=== PATIENT | female | born 1960 | race Two or more races ===

== ENCOUNTER 2019-05-01 13:39 | Emergency (ER) | payer SELFPAY ==
[2019-05-01] MEDS ORDERED: KETOROLAC TROMETHAMINE INJ/PF 30 MG/1 ML SDV IV ONE (14:39)
[2019-05-01] MEDS ORDERED: NORMAL SALINE 1000 ML 1,000 ML IV ONE ×2 (14:39→19:16)
--- NOTE | 2019-05-01 14:41 | ER Document Report ---
ED Medical Screen (RME) - General Chief Complaint: Back Pain Stated Complaint: BACK PAIN Time Seen by Provider: 05/01/19 14:34 Primary Care Provider: MAGDALENA PARRA [Primary Care Provider] - Follow up as needed Mode of Arrival: Wheelchair Information source: Patient Notes: 58-year-old female patient Amharic-speaking presenting to the emergency department with back pain, abdominal pain, nausea, vomiting and fevers. Patient reports symptoms ongoing for approximately 5 days now. Denies any diarrhea. Reports occasional cough and congestion. Lung sounds clear and equal bilaterally. Patient alert, oriented, no acute distress noted. I have greeted and performed a rapid initial assessment of this patient. A comprehensive ED assessment and evaluation of the patient, analysis of test results and completion of the medical decision making process will be conducted by additional ED providers. I have specifically instructed the patient or family members with the patient to immediately return to any nursing staff should anything change in the patient's condition or with their chief complaint. TRAVEL OUTSIDE OF THE [place] IN LAST 30 DAYS: No - Related Data Allergies/Adverse Reactions: fluorescein Allergy (Verified 05/01/19 14:33) Past Medical History - Social History Frequency of alcohol use: None Drug Abuse: None Physical Exam - Vital signs Vitals: Temp Pulse Resp BP Pulse Ox 99.4 F 102 H 18 155/74 H 98 05/01/19 14:10 05/01/19 14:10 05/01/19 14:10 05/01/19 14:10 05/01/19 14:10 Course - Vital Signs Vital signs: Temp Pulse Resp BP Pulse Ox 99.4 F 102 H 18 155/74 H 98 05/01/19 14:10 05/01/19 14:10 05/01/19 14:10 05/01/19 14:10 05/01/19 14:10 Doctor's Discharge - Discharge Referrals: MAGDALENA PARRA [Primary Care Provider] - Follow up as needed
[2019-05-01] MEDS ORDERED: KETOROLAC TROMETHAMINE INJ/PF 30 MG/1 ML SDV ONE (18:10)
[2019-05-01 18:43] LABS: HEMATOCRIT 30.1 % (36.0-47.0); HEMOGLOBIN 10.3 g/dL (12.0-15.5); MEAN CORPUSCULAR HEMOGLOBIN 31.4 pg (27.0-33.4); MEAN CORPUSCULAR HGB CONC 34.1 g/dL (32.0-36.0); MEAN CORPUSCULAR VOLUME 92 fl (80-97); PLATELET COUNT 301 10^3/uL (150-450); RED BLOOD COUNT 3.27 10^6/uL (3.72-5.28); RED CELL DISTRIBUTION WIDTH 13.6 % (11.5-14.0); WHITE BLOOD COUNT 10.3 10^3/uL (4.0-10.5)
[2019-05-01] MEDS ORDERED: CETIRIZINE 10 MG TABLET PO ONE (18:51)
--- NOTE | 2019-05-01 18:52 | ER Document Report ---
ED General - General Chief Complaint: Back Pain Stated Complaint: BACK PAIN Time Seen by Provider: 05/01/19 14:34 Primary Care Provider: MAGDALENA PARRA [NO LOCAL MD] - Follow up as needed Mode of Arrival: Wheelchair Notes: Patient is a 58-year-old female who presents to the emergency department with a chief complaint of generalized body aches, back pain, abdominal pain, nausea, vomiting, no fever. Patient states that her symptoms started 5 days ago. Patient states that she has ear pain, cough, and congestion. She also has some rhinorrhea. Her cousin is at bedside and is translating for her. MERCEDES Crawford also at bedside to translate. TRAVEL OUTSIDE OF THE [place] IN LAST 30 DAYS: No - Related Data Allergies/Adverse Reactions: fluorescein Allergy (Verified 05/01/19 14:33) Past Medical History - General Information source: Patient - Social History Smoking Status: Never Smoker Frequency of alcohol use: None Drug Abuse: None Family History: Reviewed & Not Pertinent Patient has suicidal ideation: No Patient has homicidal ideation: No Endocrine Medical History: Reports: Hx Diabetes Mellitus Type 2 Review of Systems - Review of Systems Notes: REVIEW OF SYSTEMS: CONSTITUTIONAL : See HPI. EENT: Denies eye, ear, throat, or mouth pain, discharge, or symptoms. Denies nasal or sinus congestion. CARDIOVASCULAR: Denies chest pain. RESPIRATORY: Denies shortness of breath, cough, congestion, difficulty breathing, or wheezing. GASTROINTESTINAL: Denies nausea, vomiting, and diarrhea. Denies abdominal pain. Denies constipation. GENITOURINARY: Denies difficulty urinating, burning, blood in urine, urgency or frequency. MUSCULOSKELETAL: See HPI. Denies joint pain or swelling. SKIN: Denies rash, itchiness, or lesions HEMATOLOGIC : Denies easy bruising or bleeding. LYMPHATIC: Denies swollen, painful, enlarged glands. NEUROLOGICAL: Denies no numbness or tingling denies weakness. Denies headache. Denies altered mental status. Denies alteration in speech. PSYCHIATRIC: Denies stress, anxiety, alteration in sleep patterns, or depression. All other systems reviewed and negative. Physical Exam - Vital signs Vitals: Temp Pulse Resp BP Pulse Ox 99.4 F 102 H 18 155/74 H 98 05/01/19 14:10 05/01/19 14:10 05/01/19 14:10 05/01/19 14:10 05/01/19 14:10 - Notes Notes: PHYSICAL EXAMINATION: GENERAL: Appears ill, mild distress. HEAD: Normocephalic, atraumatic. EYES: PERRL, conjunctiva normal, all extraocular movements intact, sclera nonicteric ENT: Moist mucous membranes. NECK: Supple, no noticeable swelling, redness, rash. Normal range of motion. LUNGS: Equal breath sounds bilaterally and clear to auscultation. No wheezes rales or rhonchi. CARDIOVASCULAR: S1-S2, regular rate, regular rhythm. Radial pulses 2+, normal. ABDOMEN: Normoactive bowel sounds. Soft, nontender, no guarding, no rebound tenderness, and no masses palpated. EXTREMITIES: Normal strength and range of motion, no pitting or edema. No cyanosis. NEUROLOGICAL: Moves all extremities upon command. Strength 5/5 in all extremities. PSYCH: Normal mood, normal affect. SKIN: Warm, dry. No rash, lesions, ulcerations noted. Normal skin turgor. BACK: CVA tenderness Course - Re-evaluation Re-evalutation: 05/02/19 Presentation is most consistent with acute pyelonephritis. Laboratories do demonstrate a large amount of white blood cells in the urine as well as bacteria. Patient has had constitutional symptoms at home as well as a fever. CVA tenderness is present on exam. The remainder laboratories are relatively unremarkable without evidence of renal dysfunction. I do not suspect an acute appendicitis, biliary pathology, pancreatitis, intra-abdominal abscess, or tubo-ovarian abscess based on history and examination. Patient has been given a dose of IV ceftriaxone and a liter of fluids. Patient is able to tolerate oral intake without difficulty. Will be discharged home on 7 day course of cephalexin. A urine culture has been sent. Strict return precautions and follow-up recommendations have been discussed at length. - Vital Signs Vital signs: Temp Pulse Resp BP Pulse Ox 98.6 F 89 16 121/58 L 98 05/01/19 20:55 05/01/19 20:55 05/01/19 20:55 05/01/19 20:55 05/01/19 20:55 - Laboratory Result Diagrams: 05/01/19 18:23 05/01/19 18:23 Laboratory results interpreted by me: 05/01/19 05/01/19 05/01/19 17:26 18:23 18:23 RBC 3.27 L Hgb 10.3 L Hct 30.1 L Seg Neuts % (Manual) 93 H Lymphocytes % (Manual) 4 L Abs Neuts (Manual) 9.6 H Abs Lymphs (Manual) 0.4 L Sodium 129.3 L Potassium 5.8 H Chloride 95 L Glucose 302 H Total Bilirubin 2.3 H Direct Bilirubin 1.7 H AST 45 H ALT 43 H Alkaline Phosphatase 631 H Albumin 3.0 L Urine Protein 100 H Urine Glucose (UA) >=500 H Urine Ketones TRACE H Urine Blood SMALL H Leukocyte Esterase Rfl LARGE H Discharge - Discharge Clinical Impression: Back pain Qualifiers: Back pain location: low back pain Chronicity: acute Back pain laterality: bilateral Sciatica presence: without sciatica Qualified Code(s): M54.5 - Low back pain Urinary tract infection Qualifiers: Urinary tract infection type: acute pyelonephritis Qualified Code(s): N10 - Acute pyelonephritis Condition: Stable Disposition: HOME, SELF-CARE Instructions: Urinary Tract Infection ([facility]) Additional Instructions: Urinary Tract Infection Your evaluation indicates that you have a urinary tract infection. This is due to germs growing in the bladder. This is a common problem. This infection usually responds quickly to antibiotics. Your antibiotic should be taken exactly as prescribed. Drink plenty of fluids -- three to four quarts a day. Occasionally, a bladder anesthetic will be prescribed to help stop the fe eling of urgency until the antibiotic has a chance to clear the infection. This may cause your urine to be dark orange. Certain urine infections require a culture. If the doctor obtained a cult ure, the results will be back in two days. You should call to see if a change in treatment is needed. A repeat urinalysis after you finish treatment is often recommended. The physician will let you know if further testing is required. Call the doctor if you develop fever, chills, flank pain, inability to urinate, or blood in the urine. Prescriptions: Cephalexin [Keflex] 500 mg PO BID #14 capsule Referrals: LOCAL,NO [NO LOCAL MD] - Follow up as needed Print Language: Kyrgyz
[2019-05-01 18:57] LABS: ALKALINE PHOSPHATASE 631 U/L (38-126); ANION GAP 9 (5-19); ASPARTATE AMINO TRANSFERASE 45 U/L (14-36); BILIRUBIN,DIRECT 1.7 mg/dL (0.0-0.4); BILIRUBIN,TOTAL 2.3 mg/dL (0.2-1.3); BLOOD UREA NITROGEN 16 mg/dL (7-20); CALCIUM 8.6 mg/dL (8.4-10.2); CARBON DIOXIDE 25 mmol/L (22-30); CHLORIDE 95 mmol/L (98-107); GLUCOSE 302 mg/dL (75-110); POTASSIUM 5.8 mmol/L (3.6-5.0); TOTAL PROTEIN 7.4 g/dL (6.3-8.2)
[2019-05-01 19:08] LABS: ABSOLUTE LYMPHOCYTES# (MANUAL) 0.4 10^3/uL (0.5-4.7); ABSOLUTE MONOCYTES # (MANUAL) 0.3 10^3/uL (0.1-1.4); BASOPHILS % (MANUAL) 0 % (0-2); EOSINOPHILS % (MANUAL) 0 % (0-6); LYMPHOCYTES % (MANUAL) 4 % (13-45); MONOCYTES % (MANUAL) 3 % (3-13); SEGMENTED NEUTROPHILS % (MAN) 93 % (42-78); TOTAL CELLS COUNTED 100
[2019-05-01 19:09] LABS: PLATELET COMMENT ADEQUATE; POLYCHROMASIA SLIGHT
[2019-05-01 19:11] LABS: A TYPE INFLUENZA AG NEGATIVE (NEGATIVE); B INFLUENZA AG NEGATIVE (NEGATIVE)
[2019-05-01] MEDS ORDERED: ACETAMINOPHEN 325 MG TABLET PO ONE (19:16)
--- NOTE | 2019-05-01 19:16 | RADIOLOGY REPORT (SQ) ---
EXAM DESCRIPTION: CHEST SINGLE VIEW COMPLETED DATE/TIME: 05/01/2019 7:00 pm REASON FOR STUDY: body aches; fever; cough COMPARISON: None. EXAM PARAMETERS: NUMBER OF VIEWS: One view. TECHNIQUE: Single frontal radiographic view of the chest acquired. RADIATION DOSE: NA LIMITATIONS: None. FINDINGS: LUNGS AND PLEURA: No opacities, masses or pneumothorax. No pleural effusion. MEDIASTINUM AND HILAR STRUCTURES: No masses. Contour normal. HEART AND VASCULAR STRUCTURES: Heart normal in size. Normal vasculature. BONES: No acute findings. HARDWARE: None in the chest. OTHER: No other significant finding. IMPRESSION: NO ACUTE RADIOGRAPHIC FINDING IN THE CHEST. TECHNICAL DOCUMENTATION: JOB ID: [id number] 2010 [employer]- All Rights Reserved Reading location - IP/workstation name: [email or web address]
[2019-05-01 20:00] LABS: APPEARANCE,URINE CLOUDY; BILIRUBIN,URINE NEGATIVE (NEGATIVE); COLOR,URINE AMBER; GLUCOSE, URINE >=500 mg/dL (NEGATIVE); KETONES,URINE TRACE mg/dL (NEGATIVE); PROTEIN,URINE 100 mg/dL (NEGATIVE); URINE SPECIFIC GRAVITY 1.012; UROBILINOGEN,URINE NEGATIVE mg/dL (<2.0)
[2019-05-01] MEDS ORDERED: CEFTRIAXONE 1 GM/D5W RTU 50 ML IV ONE (20:21)
[2019-05-01] MEDS ORDERED: CEFTRIAXONE INJ 1000 MG VIAL IM ONE (20:26)
[2019-05-01] MEDS ORDERED: LIDOCAINE 1% INJ-PF (10 MG/ML) 30 ML SDV INJ ONE (20:26)
[2019-05-01 20:56] VITALS: BP 121/58
== END 2019-05-01 21:19 | disposition home or self-care (01) ==
LOC: ER 13:39
DX: N10 Acute pyelonephritis (principal); M54.5 Low back pain; R10.9 Unspecified abdominal pain; R11.2 Nausea with vomiting, unspecified; H92.09 Otalgia, unspecified ear; R05 Cough; J34.89 Other specified disorders of nose and nasal sinuses; E11.9 Type 2 diabetes mellitus without complications; Z88.8 Allergy status to other drugs, medicaments and biological substances
CPT/HCPCS: 99283; 96372; 96361; 96374; 36415; 87086; 83690; 85025; 87088; 80053; 81001; 87186; 87804; 71045; J3490; J1885; J0696; J7030

== ENCOUNTER 2019-05-27 07:42 | Emergency (ER) | payer SELFPAY ==
[2019-05-27 08:23] LABS: APPEARANCE,URINE CLOUDY; BILIRUBIN,URINE NEGATIVE (NEGATIVE); COLOR,URINE YELLOW; GLUCOSE, URINE >=500 mg/dL (NEGATIVE); KETONES,URINE NEGATIVE (NEGATIVE); LEUKOCYTE ESTERASE,URINE LARGE (NEGATIVE); NITRITE,URINE NEGATIVE (NEGATIVE); PROTEIN,URINE 100 mg/dL (NEGATIVE); URINE SPECIFIC GRAVITY 1.009
--- NOTE | 2019-05-27 08:50 | ER Document Report ---
ED GI/ - General Chief Complaint: Flank Pain Stated Complaint: URINARY PROBLEM/LOWER BACK PAIN Time Seen by Provider: 05/27/19 08:49 Primary Care Provider: ÁNGELA SCHAFER FNP-C [Primary Care Provider] - Follow up as needed Notes: Interpretation via Rodney [place] shirt turner with shirt turner #[id number]. Patient is a 58-year-old female who presents emergency department with a chief complaint of left flank pain. Patient was seen the end of March and was treated with Keflex for urinary tract infection. Patient states that her symptoms are a little bit better, but she still continues to have left flank pain. Patient states that she has some urgency and frequency. States that she only urinates a little. Admits to some constipation. Patient has been taking ibuprofen, but has had little relief of her pain. TRAVEL OUTSIDE OF THE [place] IN LAST 30 DAYS: No - Related Data Allergies/Adverse Reactions: fluorescein Allergy (Verified 05/27/19 07:55) Home Medications: DM medications Past Medical History - Social History Smoking Status: Former Smoker Chew tobacco use (# tins/day): No Frequency of alcohol use: None Drug Abuse: None Family History: Reviewed & Not Pertinent Patient has suicidal ideation: No Patient has homicidal ideation: No Endocrine Medical History: Reports: Hx Diabetes Mellitus Type 2 Review of Systems - Review of Systems Notes: REVIEW OF SYSTEMS: CONSTITUTIONAL : Denies recent illness. Denies recent unintentional weight loss. Denies fever, chills, or sweats. EENT: Denies eye, ear, throat, or mouth pain, discharge, or symptoms. Denies nasal or sinus congestion. CARDIOVASCULAR: Denies chest pain. RESPIRATORY: Denies shortness of breath, cough, congestion, difficulty breathing, or wheezing. GASTROINTESTINAL: Denies nausea, vomiting, and diarrhea. Denies abdominal pain. Denies constipation. GENITOURINARY: See HPI. MUSCULOSKELETAL: See HPI. Denies joint pain or swelling. SKIN: Denies rash, itchiness, or lesions HEMATOLOGIC : Denies easy bruising or bleeding. LYMPHATIC: Denies swollen, painful, enlarged glands. NEUROLOGICAL: Denies no numbness or tingling denies weakness. Denies headache. Denies altered mental status. Denies alteration in speech. PSYCHIATRIC: Denies stress, anxiety, alteration in sleep patterns, or depression. All other systems reviewed and negative. Physical Exam - Vital signs Vitals: Temp Pulse Resp BP Pulse Ox 98 F 83 16 167/74 H 100 05/27/19 07:49 05/27/19 07:49 05/27/19 07:49 05/27/19 07:49 05/27/19 07:49 - Notes Notes: PHYSICAL EXAMINATION: GENERAL: Appears well, healthy, well-nourished, no acute distress. HEAD: Normocephalic, atraumatic. EYES: PERRL, conjunctiva normal, all extraocular movements intact, sclera nonicteric ENT: Moist mucous membranes. NECK: Supple, no noticeable swelling, redness, rash. Normal range of motion. LUNGS: Equal breath sounds bilaterally and clear to auscultation. No wheezes rales or rhonchi. CARDIOVASCULAR: S1-S2, regular rate, regular rhythm. Radial pulses 2+, normal. ABDOMEN: Normoactive bowel sounds. Soft, nontender, no guarding, no rebound tenderness, and no masses palpated. EXTREMITIES: Normal strength and range of motion, no pitting or edema. No cyanosis. NEUROLOGICAL: Moves all extremities upon command. Strength 5/5 in all extremities. PSYCH: Normal mood, normal affect. SKIN: Warm, dry. No rash, lesions, ulcerations noted. Normal skin turgor. Back: Left CVA tenderness. Course - Re-evaluation Re-evalutation: 05/27/19 10:[address] Valdez, urology at [facility]. He is recommending the patient patient start on Flomax and follow-up with urology outpatient. He is also recommending patient be started on Bactrim. 05/27/19 11:20 Solar Maintenance TechnicianCharleen, ID number [id number]. Patient will follow-up with [facility] urology. She will be started on Flomax. I looked at her previous visit and her microbiology shows that the strain of E. coli that she has is resistant to Bactrim. I will continue Keflex. Patient was straight cathed and will be sent for urine culture. Follow-up precautions were given. Verbal discharge i nstructions were given to the patient. They verbalized understanding. They are stable for discharge. - Vital Signs Vital signs: Temp Pulse Resp BP Pulse Ox 98.7 F 83 16 171/86 H 100 05/27/19 10:27 05/27/19 07:49 05/27/19 07:49 05/27/19 10:00 05/27/19 07:49 - Laboratory Result Diagrams: 05/27/19 08:45 05/27/19 08:45 Laboratory results interpreted by me: 05/27/19 05/27/19 05/27/19 08:10 08:45 08:45 RBC 3.16 L Hgb 9.6 L Hct 28.4 L Lymph % (Auto) 12.6 L Sodium 134.1 L Potassium 5.1 H BUN 21 H Glucose 269 H Alkaline Phosphatase 399 H Albumin 3.4 L Urine Protein 100 H Urine Glucose (UA) >=500 H Urine Urobilinogen 2.0 H Ur Leukocyte Esterase LARGE H Discharge - Discharge Clinical Impression: Left flank pain, Kidney stone Condition: Stable Disposition: HOME, SELF-CARE Additional Instructions: You are seen today in the emergency department for left flank pain. You have a kidney stone noted on your CT scan. Please take your antibiotic, follow-up with urology, and take the Flomax ordered for you. Prescriptions: Tamsulosin HCl [Flomax 0.4 mg Cap.sr] 0.4 mg PO DAILY #6 cap.sr.24h Cephalexin [Keflex] 500 mg PO BID #14 capsule Ondansetron [Zofran Odt 4 mg Tablet] 1 - 2 tab PO Q4H PRN #15 tab.rapdis PRN Reason: For Nausea/Vomiting Referrals: ÁNGELA SCHAFER FNP-C [Primary Care Provider] - Follow up as needed [facility] [Provider Group] - Follow up in 3-5 days
[2019-05-27] MEDS ORDERED: NORMAL SALINE 1000 ML 1,000 ML IV ONE (08:53)
[2019-05-27 09:00] LABS: ABSOLUTE EOSINOPHILS # (AUTO) 0.1 10^3/uL (0.0-0.6); ABSOLUTE LYMPHOCYTES (AUTO) 0.9 10^3/uL (0.5-4.7); ABSOLUTE MONOCYTES (AUTO) 0.6 10^3/uL (0.1-1.4); ABSOLUTE NEUT (AUTO) 5.5 10^3/uL (1.7-8.2); BASOPHILS % (AUTO) 0.4 % (0-2); EOSINOPHILS % (AUTO) 1.7 % (0-6); HEMATOCRIT 28.4 % (36.0-47.0); HEMOGLOBIN 9.6 g/dL (12.0-15.5); LYMPHOCYTES % (AUTO) 12.6 % (13-45); MEAN CORPUSCULAR HEMOGLOBIN 30.4 pg (27.0-33.4); MEAN CORPUSCULAR HGB CONC 33.8 g/dL (32.0-36.0); MEAN CORPUSCULAR VOLUME 90 fl (80-97); MONOCYTES % (AUTO) 8.4 % (3-13); PLATELET COUNT 362 10^3/uL (150-450); RED BLOOD COUNT 3.16 10^6/uL (3.72-5.28); RED CELL DISTRIBUTION WIDTH 13.6 % (11.5-14.0); SEGMENTED NEUTROPHILS % (AUTO) 76.9 % (42-78); TOTAL CELLS COUNTED % (AUTO) 100 %; WHITE BLOOD COUNT 7.1 10^3/uL (4.0-10.5)
[2019-05-27 09:18] LABS: ALBUMIN 3.4 g/dL (3.5-5.0); ALKALINE PHOSPHATASE 399 U/L (38-126); ANION GAP 7 (5-19); ASPARTATE AMINO TRANSFERASE 22 U/L (14-36); BILIRUBIN,DIRECT 0.2 mg/dL (0.0-0.4); BILIRUBIN,TOTAL 0.5 mg/dL (0.2-1.3); BLOOD UREA NITROGEN 21 mg/dL (7-20); CALCIUM 8.9 mg/dL (8.4-10.2); CARBON DIOXIDE 28 mmol/L (22-30); CHLORIDE 99 mmol/L (98-107); GLUCOSE 269 mg/dL (75-110); POTASSIUM 5.1 mmol/L (3.6-5.0); TOTAL PROTEIN 7.9 g/dL (6.3-8.2)
--- NOTE | 2019-05-27 09:51 | RADIOLOGY REPORT (SQ) ---
EXAM DESCRIPTION: CT ABD/PELVIS NO ORAL OR IV COMPLETED DATE/TIME: 05/27/2019 9:38 am REASON FOR STUDY: left flank pain COMPARISON: 02/22/2008 TECHNIQUE: CT scan of the abdomen and pelvis performed without intravenous or oral contrast. Images reviewed with lung, soft tissue, and bone windows. Reconstructed coronal and sagittal MPR images revi ewed. All images stored on PACS. All CT scanners at this facility use dose modulation, iterative reconstruction, and/or weight based d osing when appropriate to reduce radiation dose to as low as reasonably achievable (ALARA). [facility]: Dose Right [facility]: CareDose [facility]: Dose Right [facility]: Teradose 4D [facility]: LurnQ RADIATION DOSE: CT Rad equipment meets quality standard of care and radiation dose reduction techniq ues were employed. CTDIvol: 4.8 mGy. DLP: 247 mGy-cm.mGy. LIMITATIONS: None. FINDINGS: LOWER CHEST: No significant findings. No nodules or infiltrates. NON-CONTRASTED LIVER, SPLEEN, ADRENALS: Evaluation limited by lack of IV contrast. No identified sign ificant masses. PANCREAS: No masses. No peripancreatic inflammatory changes. GALLBLADDER: No identified stones by CT criteria. No inflammatory changes to suggest cholecystitis. RIGHT KIDNEY AND URETER: No suspicious masses. Assessment limited by lack of IV contrast. No signif icant calcifications. No hydronephrosis or hydroureter. LEFT KIDNEY AND URETER: No suspicious masses. Assessment limited by lack of IV contrast. There is blurring of the central fat. No significant perinephric stranding. No hydronephrosis. There is no ureteral dilatation. There is a small calcification identified on series 3, image 73 an on coronal reconstructions image 39. Distal left ureteral stone cannot be excluded. AORTA AND RETROPERITONEUM: No aneurysm. Occasional small periaortic lymph node is identified. This is significantly improved from 2008. BOWEL AND PERITONEAL CAVITY: No obvious masses or inflammatory changes. No free fluid. APPENDIX: Normal. PELVIS, BLADDER, AND ABDOMINAL WALL:Fibroid uterus is noted. BONES: No significant findings. OTHER: No other significant finding. IMPRESSION: 1. Occasional small periaortic lymph node. These are nonspecific. 2. Blurring of the central fat planes involving the left kidney. Possible 1 to 2 mm distal left ure teral stone. No significant hydronephrosis. COMMENT: Quality ID # [id number]: Final reports with documentation of one or more dose reduction techniques (e.g., Automated exposure control, adjustment of the mA and/or kV according to patient size, use of iterative reconstruction technique) TECHNICAL DOCUMENTATION: JOB ID: [id number] 2010 [employer]- All Rights Reserved Reading location - IP/workstation name: [email or web address]-
[2019-05-27] MEDS ORDERED: CIPROFLOXACIN 400 MG/D5W RTU 400 MG/200 ML RTUPB IV SCH (10:00)
[2019-05-27] MEDS ORDERED: METOCLOPRAMIDE HCL INJ/PF 10 MG/2 ML SDV IV ONE (10:20)
[2019-05-27] MEDS ORDERED: TAMSULOSIN HCL 0.4 MG CAP.SR.24H PO ONE (10:48)
[2019-05-27] MEDS ORDERED: ONDANSETRON ODT 4 MG TAB (6 TAB/ER DISP) PO PRN (11:28)
[2019-05-27 11:39] VITALS: BP 166/82
== END 2019-05-27 11:40 | disposition home or self-care (01) ==
LOC: ER 07:42
DX: N20.0 Calculus of kidney (principal); R10.9 Unspecified abdominal pain; R39.198 Other difficulties with micturition; M54.5 Low back pain; R39.15 Urgency of urination; R35.0 Frequency of micturition; Z87.891 Personal history of nicotine dependence; E11.9 Type 2 diabetes mellitus without complications
CPT/HCPCS: 99284; 96375; 96365; 36415; 87086; 85025; 80053; 81001; 74176; J2765; J7030; J0744

== ENCOUNTER 2019-08-30 20:33 | Emergency (ER) | payer SELFPAY ==
[2019-08-30] MEDS ORDERED: KETOROLAC TROMETHAMINE INJ/PF 30 MG/1 ML SDV IV ONE (21:23)
[2019-08-30] MEDS ORDERED: ONDANSETRON HCL INJ/PF 4 MG/2 ML SDV IV ONE (21:23)
--- NOTE | 2019-08-30 21:27 | ER Document Report ---
ED Medical Screen (RME) - General Chief Complaint: Possible Kidney Stone Stated Complaint: FLANK PAIN Time Seen by Provider: 08/30/19 21:10 Primary Care Provider: ÁNGELA SCHAFER FNP-C [Primary Care Provider] - Follow up as needed Mode of Arrival: Ambulatory Information source: Patient Notes: Patient with c/o Left flank pain that started this am. She has been vomiting today. She denies any fever or chills but reports some dysuria. Pt also c/o dry eyes. She has a hx of kidney stones. She is luxembourgish speaking and translation system was used. Abd soft/nontender. I have greeted and performed a rapid initial assessment of this patient. A comprehensive ED assessment and evaluation of the patient, analysis of test results and completion of the medical decision making process will be conducted by additional ED providers. I have specifically instructed the patient or family members with the patient to immediately return to any nursing staff should anything change in the patient's condition or with their chief complaint. TRAVEL OUTSIDE OF THE [place] IN LAST 30 DAYS: No - Related Data Allergies/Adverse Reactions: fluorescein Allergy (Verified 05/27/19 07:55) Home Medications: diabetes medicine Past Medical History - Social History Chew tobacco use (# tins/day): No Frequency of alcohol use: None Drug Abuse: None Endocrine Medical History: Reports: Hx Diabetes Mellitus Type 2 Physical Exam - Vital signs Vitals: Temp Pulse Resp BP Pulse Ox 99.5 F 96 16 98/72 L 98 08/30/19 20:40 08/30/19 20:40 08/30/19 20:40 08/30/19 20:40 08/30/19 20:40 Course - Vital Signs Vital signs: Temp Pulse Resp BP Pulse Ox 99.5 F 96 16 98/72 L 98 08/30/19 21:16 08/30/19 20:40 08/30/19 20:40 08/30/19 20:40 08/30/19 20:40 Doctor's Discharge - Discharge Referrals: ÁNGELA SCHAFER FNP-C [Primary Care Provider] - Follow up as needed
[2019-08-30 22:00] LABS: ABSOLUTE LYMPHOCYTES (AUTO) 0.8 10^3/uL (0.5-4.7); ABSOLUTE MONOCYTES (AUTO) 0.8 10^3/uL (0.1-1.4); ABSOLUTE NEUT (AUTO) 12.7 10^3/uL (1.7-8.2); BASOPHILS % (AUTO) 0.1 % (0-2); EOSINOPHILS % (AUTO) 0.2 % (0-6); HEMATOCRIT 30.4 % (36.0-47.0); HEMOGLOBIN 10.3 g/dL (12.0-15.5); LYMPHOCYTES % (AUTO) 5.8 % (13-45); MEAN CORPUSCULAR HEMOGLOBIN 30.2 pg (27.0-33.4); MEAN CORPUSCULAR HGB CONC 33.9 g/dL (32.0-36.0); MEAN CORPUSCULAR VOLUME 89 fl (80-97); MONOCYTES % (AUTO) 5.8 % (3-13); PLATELET COUNT 256 10^3/uL (150-450); RED BLOOD COUNT 3.41 10^6/uL (3.72-5.28); SEGMENTED NEUTROPHILS % (AUTO) 88.1 % (42-78); TOTAL CELLS COUNTED % (AUTO) 100 %; WHITE BLOOD COUNT 14.4 10^3/uL (4.0-10.5)
[2019-08-30 22:09] LABS: ALBUMIN 4.1 g/dL (3.5-5.0); ALKALINE PHOSPHATASE 265 U/L (38-126); ANION GAP 9 (5-19); ASPARTATE AMINO TRANSFERASE 29 U/L (14-36); BILIRUBIN,TOTAL 0.7 mg/dL (0.2-1.3); BLOOD UREA NITROGEN 27 mg/dL (7-20); CALCIUM 9.7 mg/dL (8.4-10.2); CARBON DIOXIDE 26 mmol/L (22-30); CHLORIDE 94 mmol/L (98-107); POTASSIUM 5.3 mmol/L (3.6-5.0); TOTAL PROTEIN 8.3 g/dL (6.3-8.2)
[2019-08-30 22:20] LABS: GLUCOSE 458 mg/dL (75-110)
--- NOTE | 2019-08-30 22:55 | RADIOLOGY REPORT (SQ) ---
EXAM DESCRIPTION: Retroperitoneal ultrasound CLINICAL HISTORY: 58 years Female; L flank pain TECHNIQUE: Bilateral renal ultrasound was performed. COMPARISON: CT scan of the abdomen and pelvis without contrast 05/27/2019 FINDINGS: Visualized portions of IVC and aorta are unremarkable. Right kidney: The kidney measures 9.1 x 4.6 x 4.4 cm. Echogenicity is normal. Blood flow is normal.. No hydronephrosis or shadowing calculi. Left kidney: The kidney measures 9.8 x 4.7 x 4.9 cm and there is mild pelvocaliectasis. The ureter is dilated.. No definite stones. Bladder: The bladder is mostly empty with a volume of 24.7 mL. Bilateral ureteral jets are seen. IMPRESSION: Mild left-sided hydronephrosis and hydroureter of uncertain etiology. No stones are seen.
[2019-08-31] MEDS ORDERED: ONDANSETRON HCL INJ/PF 4 MG/2 ML SDV IV ONE (00:30)
[2019-08-31] MEDS ORDERED: KETOROLAC TROMETHAMINE INJ/PF 30 MG/1 ML SDV IV ONE (00:30)
[2019-08-31] MEDS ORDERED: HYDROMORPHONE HCL INJ/PF 2 MG/ML AMPULE IV ONE (01:28)
[2019-08-31] MEDS ORDERED: NORMAL SALINE 1000 ML 1,000 ML IV ONE (01:28)
--- NOTE | 2019-08-31 02:38 | RADIOLOGY REPORT (SQ) ---
EXAM: CT Abdomen and Pelvis Without Intravenous Contrast EXAM DATE/TIME: 08/31/2019 2:10 AM CLINICAL HISTORY: The patient is 58 years old and is Female; left flank pain TECHNIQUE: Axial computed tomography images of the abdomen and pelvis without intravenous contrast. Sagittal and coronal reformatted images were created and reviewed. This CT exam was performed using one or more of the following dose reduction techniques: automated exposure control, adjustment of the mA and/or kV according to patient size, and/or use of iterative reconstruction technique. COMPARISON: CT abdomen pelvis from 05/27/2019; retroperitoneal ultrasound from 08/30/2019 FINDINGS: LUNG BASES: Unremarkable. No mass. No consolidation. ABDOMEN: LIVER: There is a faint hypodense lesion in the dome of the liver measuring 9 mm (series 3, image 7). This may represent a cyst but is difficult to fully characterize on this exam. The liver is otherwise unremarkable. GALLBLADDER AND BILE DUCTS: Unremarkable. No calcified stones. No significant biliary ductal dilatation. PANCREAS: Unremarkable. No ductal dilation. SPLEEN: Unremarkable. No splenomegaly. ADRENALS: Unremarkable. No adrenal nodules or masses identified. KIDNEYS AND URETERS: The right kidney is normal in appearance. There is left-sided perinephric stranding which appears slightly increased compared to the prior CT. There is also asymmetric decreased visualization of the renal sinus fat on the left, which is similar to the prior exam. Suspected mild left-sided hydronephrosis. No renal or ureteral stones. No hydroureter. STOMACH AND BOWEL: No evidence of bowel obstruction. No significant bowel wall thickening appreciated. PELVIS: APPENDIX: No findings to suggest acute appendicitis. BLADDER: Unremarkable. No stones. REPRODUCTIVE: Calcified uterine fibroids again demonstrated. ABDOMEN and PELVIS: INTRAPERITONEAL SPACE: Unremarkable. No free air. No significant fluid collection. BONES/JOINTS: No acute fracture. No dislocation. SOFT TISSUES: No significant abnormalities in the superficial soft tissues. VASCULATURE: Unremarkable. No abdominal aortic aneurysm. LYMPH NODES: No significant lymph node enlargement. IMPRESSION: Slight interval increase in left-sided perinephric stranding, with mild left-sided hydronephrosis. No renal or ureteral stones. No hydroureter. Findings may represent pyelonephritis. Malignancy is difficult to completely exclude on this exam. If not contraindicated, contrasted multiphase renal protocol CT with delayed images would be helpful for further evaluation. Alternatively, consider urologic follow-up.
[2019-08-31 02:50] LABS: APPEARANCE,URINE CLOUDY; BILIRUBIN,URINE NEGATIVE (NEGATIVE); COLOR,URINE YELLOW; GLUCOSE, URINE >=500 mg/dL (NEGATIVE); KETONES,URINE NEGATIVE (NEGATIVE); LEUKOCYTE ESTERASE,URINE LARGE (NEGATIVE); NITRITE,URINE NEGATIVE (NEGATIVE); PROTEIN,URINE 100 mg/dL (NEGATIVE); UROBILINOGEN,URINE NEGATIVE mg/dL (<2.0)
[2019-08-31] MEDS ORDERED: CEFTRIAXONE INJ 1000 MG VIAL IV ONE (02:51)
--- NOTE | 2019-08-31 05:30 | ER Document Report ---
Entered by NANDO ARECHIGA SCRIBE 08/31/19 0149 Acting as scribe for:ZAC WILHELM IV, MD ED GI/ - General Chief Complaint: Possible Kidney Stone Stated Complaint: FLANK PAIN Time Seen by Provider: 08/30/19 21:10 Primary Care Provider: ÁNGELA SCHAFER FNP-C [Primary Care Provider] - Follow up as needed Mode of Arrival: Ambulatory Information source: Patient Notes: This 58 year old female patient with history of kidney stones and Hodgkin's lymphoma presents to the ED today with complaints of left-sided flank pain for the past x3 months, worse yesterday. Patient is a Citizen [place]-speaker, so HPI was interpreted using [employer]. Patient reports associated dysuria, urinary frequency, nausea, and vomiting. Denies fever or chills. Patient states that she gets evaluated every year in [place] for the cancer. TRAVEL OUTSIDE OF THE [place] IN LAST 30 DAYS: No - Related Data Allergies/Adverse Reactions: fluorescein Allergy (Verified 05/27/19 07:55) Home Medications: diabetes medicine Past Medical History - General Information source: Patient, [facility] Records - Social History Smoking Status: Current Some Day Smoker Cigarette use (# per day): Yes Chew tobacco use (# tins/day): No Smoking Education Provided: No Frequency of alcohol use: None Drug Abuse: None Family History: Reviewed & Not Pertinent Patient has suicidal ideation: No Patient has homicidal ideation: No Endocrine Medical History: Reports: Hx Diabetes Mellitus Type 2 Renal/ Medical History: Reports: Hx Kidney Stones Review of Systems - Review of Systems Constitutional: See HPI. denies: Chills, Fever EENT: No symptoms reported Cardiovascular: No symptoms reported Respiratory: No symptoms reported Gastrointestinal: See HPI, Nausea, Vomiting Genitourinary: See HPI, Dysuria, Frequency, Flank pain Female Genitourinary: No symptoms reported Musculoskeletal: No symptoms reported Skin: No symptoms reported Hematologic/Lymphatic: No symptoms reported Neurological/Psychological: No symptoms reported -: Yes All other systems reviewed and negative Physical Exam - Vital signs Vitals: Temp Pulse Resp BP Pulse Ox 99.5 F 96 16 98/72 L 98 08/30/19 20:40 08/30/19 20:40 08/30/19 20:40 08/30/19 20:40 08/30/19 20:40 - General General appearance: Alert, Other - Non-toxic appearing In distress: None - HEENT Head: Normocephalic, Atraumatic Eyes: Normal Pupils: PERRL - Respiratory Respiratory status: No respiratory distress Chest status: Nontender Breath sounds: Normal Chest palpation: Normal - Cardiovascular Rhythm: Regular Heart sounds: Normal auscultation Murmur: No Friction rub: No Gallop: None auscultated - Abdominal Inspection: Normal Distension: No distension Bowel sounds: Normal Tenderness: Nontender - Abdomen soft Organomegaly: No organomegaly - Back Back: Normal, Nontender - Extremities General upper extremity: Normal inspection General lower extremity: Normal inspection - Neurological Neuro grossly intact: Yes Orientation: AAOx4 - Psychological Associated symptoms: Normal affect, Normal mood - Skin Skin Temperature: Warm Skin Moisture: Dry Skin Color: Normal Course - Re-evaluation Re-evalutation: 08/31/19 04:23 Results of ED MSE discussed with patient using video blade aligner Mariana. Patient requested that this MD contact the patient's cousin Jessy and tell him the findings including the persistent enlarged kidney on CAT scan. Patient has a history of Hodgkin's lymphoma and this MD stressed to the patient and to the patient's cousin the importance of follow-up to make sure that the enlarged kidney is not cancerous. All questions were answered prior to discharge. Emergency signs and symptoms, reasons to return to the emergency department discussed with patient. 08/31/19 04:29 This MD spoke to the patient's cousin Jessy by phone and informed him of the findings of UTI and persistently enlarged left kidney and the need for follow-up to evaluate for the possibility of kidney cancer. - Vital Signs Vital signs: Temp Pulse Resp BP Pulse Ox 99.5 F 91 20 148/70 H 97 08/30/19 21:16 08/31/19 00:15 08/31/19 02:17 08/31/19 02:17 08/31/19 02:17 - Laboratory Result Diagrams: 08/30/19 21:28 08/30/19 21:28 Laboratory results interpreted by me: 08/30/19 08/30/19 08/31/19 21:28 21:28 01:55 WBC 14.4 H RBC 3.41 L Hgb 10.3 L Hct 30.4 L RDW 15.0 H Lymph % (Auto) 5.8 L Absolute Neuts (auto) 12.7 H Seg Neutrophils % 88.1 H Sodium 129.2 L Potassium 5.3 H Chloride 94 L BUN 27 H Creatinine 1.29 H Est GFR ( Amer) 52 L Est GFR (MDRD) Non-Af 43 L Glucose 458 H* Alkaline Phosphatase 265 H Total Protein 8.3 H Urine Protein 100 H Urine Glucose (UA) >=500 H Urine Blood SMALL H Ur Leukocyte Esterase LARGE H - Diagnostic Test Radiology reviewed: Reports reviewed Discharge - Discharge Clinical Impression: Hydronephrosis of left kidney UTI (urinary tract infection) Qualifiers: Urinary tract infection type: site unspecified Hematuria presence: with hematuria Qualified Code(s): N39.0 - Urinary tract infection, site not specified; R31.9 - Hematuria, unspecified Condition: Good Disposition: HOME, SELF-CARE Instructions: Trimethoprim-Sulfa ([facility]), Urinary Tract Infection ([facility]) Additional Instructions: Return to the Emergency Department without delay if any worse. HOME CARE INSTRUCTIONS & INFORMATION: Thank you for choosing us for your medical needs. We hope you're satisfied with the care you received. After you leave, you must properly care for your problem and, at the same time, observe its progress. Any condition can change. Some illnesses can change rapidly over hours or days. If your condition worsens, return to the Emergency Department or see your physician promptly. ABOUT YOUR X-RAYS AND EKG'S: If you had an EKG or X-rays taken, they have been read by the Emergency Physician. The X-rays and EKG's will also be read by a Radiologist or [employer] within 24 hours. If discrepancies are noted, you will be notified by telephone. Please be certain the ED has a correct telephone number & address where you can be reached. Also, realize that some fractures or abnormalities do not show up on initial X-rays. If your symptoms continue, see your physician. ABOUT YOUR LABORATORY TEST: If you had laboratory tests, the results have been reviewed by the Emergency Physician. Some test results (for example cultures) may not be available for several days. You will be contacted if any test result shows you need additional treatment. Please be certain the ED has a correct telephone number and address where you can be reached. ABOUT YOUR MEDICATIONS: You will receive instructions on how to take your medicine on the prescription label you receive. Additional information may be provided by the Pharmacy. If you have questions afterwards, call the ED for clarification or further instructions. Some prescribed medications may cause drowsiness. Do not perform tasks such as driving a car or operating machinery without consulting your Pharmacist. If you feel you need a refill of pain medication, your condition will need re-evaluation. Please do not call for a refill of any medication. ABOUT YOUR SIGNATURE: Signature of this document acknowledges to followin. Understanding that you received emergency treatment and that you may be released before al medical problems are known or treated. Please be certain the ED has a correct phone number & address where you can be reached. 2. Acknowledgement that you will arrange for follow-up care as recommended. 3. Authorization for the Emergency Physician to provide information to your follow-up Physician in order to maximize your care. AT ANY TIME, IF YOUR SYMPTOMS CHANGE SIGNIFICANTLY OR WORSEN OR YOU DEVELOP NEW SYMPTOMS, RETURN TO THE EMERGENCY DEPARTMENT IMMEDIATELY FOR RE-EVALUATION. OUR GOAL IS TO PROVIDE EXCELLENT MEDICAL CARE! WE HOPE THAT WE HAVE MET YOUR EXPECTATIONS DURING YOUR EMERGENCY DEPARTMENT VISIT AND THAT YOU FEEL YOU HAVE RECEIVED EXCELLENT CARE! Prescriptions: Sulfamethoxazole/Trimethoprim [Bactrim Ds Tablet] 1 tab PO BID 14 Days #28 tablet Referrals: ÁNGELA SCHAFER FNP-C [Primary Care Provider] - Follow up as needed Print Language: Citizen [place] I personally performed the services described in the documentation, reviewed and edited the documentation which was dictated to the scribe in my presence, and it accurately records my words and actions.
[2019-08-31 06:09] VITALS: BP 110/60
== END 2019-08-31 06:26 | disposition home or self-care (01) ==
LOC: ER 20:33
DX: N13.30 Unspecified hydronephrosis (principal); N39.0 Urinary tract infection, site not specified; R11.2 Nausea with vomiting, unspecified; R10.9 Unspecified abdominal pain; F17.210 Nicotine dependence, cigarettes, uncomplicated; Z87.442 Personal history of urinary calculi; Z85.71 Personal history of Hodgkin lymphoma
CPT/HCPCS: 99284; 96361; 96375; 96365; 36415; 83690; 85025; 80053; 81001; 76775; 74176; J1170; J0696; J2405; J7030

== ENCOUNTER 2019-09-03 17:38 | Emergency (ER) | payer SELFPAY ==
[2019-09-03] MEDS ORDERED: RINGERS SOLUTION,LACTATED 1,000 ML IV ONE (19:37)
[2019-09-03] MEDS ORDERED: ONDANSETRON HCL INJ/PF 4 MG/2 ML SDV IV ONE (19:37)
--- NOTE | 2019-09-03 19:37 | ER Document Report ---
ED GI/ - General Chief Complaint: Flank Pain Stated Complaint: ABDOMINAL PAIN Time Seen by Provider: 09/03/19 19:18 Primary Care Provider: ÁNGELA SCHAFER FNP-C [Primary Care Provider] - Follow up as needed Mode of Arrival: Ambulatory Information source: Patient, [facility] Records Notes: 58-year-old [place]er-speaking female with a past medical history significant for diabetes, non-Hodgkin's lymphoma presents to the emergency room with persistent lower abdominal pain, decreased urination, subjective fever, nausea and vomiting for the past 3 days. Patient states she was seen here on Monday was diagnosed with a UTI and hydronephrosis was discharged home on Bactrim which she states she has been unable to take secondary to the nausea and vomiting. States has b een unable to follow-up with her primary care physician as they are not taking patients due to the COVID-19 pandemic no recent travel. No COVID-19 exposure. No other ill contacts. Screen physical was obtained with the use of interpreter on [employer]. TRAVEL OUTSIDE OF THE [place] IN LAST 30 DAYS: No - Related Data Allergies/Adverse Reactions: fluorescein Allergy (Verified 09/03/19 18:48) Past Medical History - General Information source: Patient - Social History Smoking Status: Current Some Day Smoker Frequency of alcohol use: None Drug Abuse: None Family History: Reviewed & Not Pertinent Patient has homicidal ideation: No Endocrine Medical History: Reports: Hx Diabetes Mellitus Type 2 Renal/ Medical History: Reports: Hx Kidney Stones Review of Systems - Review of Systems Constitutional: Fever EENT: No symptoms reported Cardiovascular: No symptoms reported Respiratory: No symptoms reported Gastrointestinal: Abdominal pain, Nausea, Vomiting Genitourinary: Dysuria, Retention Musculoskeletal: No symptoms reported Hematologic/Lymphatic: No symptoms reported Neurological/Psychological: No symptoms reported -: Yes All other systems reviewed and negative Physical Exam - Vital signs Vitals: Temp Pulse Resp BP Pulse Ox 98.0 F 84 16 145/72 H 100 09/03/19 18:49 09/03/19 18:49 09/03/19 18:49 09/03/19 18:49 09/03/19 18:49 - General General appearance: Appears well, Alert In distress: Mild - HEENT Head: Normocephalic, Atraumatic Eyes: Normal Pupils: PERRL - Respiratory Respiratory status: No respiratory distress Chest status: Nontender Breath sounds: Normal Chest palpation: Normal - Cardiovascular Rhythm: Regular Heart sounds: Normal auscultation Murmur: No - Abdominal Inspection: Normal Distension: No distension Bowel sounds: Normal Tenderness: Tender - Diffuse generalized tenderness on palpation Organomegaly: No organomegaly. No: Hepatomegaly, Splenomegaly - Back Back: CVA tenderness - Left-sided - Neurological Neuro grossly intact: Yes Cognition: Normal Orientation: AAOx4 Judith Coma Scale Eye Opening: Spontaneous [place] Coma Scale Verbal: Oriented [place] Coma Scale Motor: Obeys Commands [place] Coma Scale Total: 15 Speech: Normal Motor strength normal: LUE, RUE, LLE, RLE Sensory: Normal - Skin Skin Temperature: Warm Skin Moisture: Dry Skin Color: Normal Course - Re-evaluation Re-evalutation: 09/03/2019 23:00 Discussed patient's lab findings, symptoms, ultrasound results, with Dr. Heredia from [facility]. States patient can be safely discharged home agrees with antibiotic choice of Keflex. Patient to call office tomorrow for an outpatient follow-up appointment. 09/03/19 23:17 Patient is resting comfortably she is afebrile, nontoxic-appearing, able to tolerate p.o. fluids. Test results were reviewed with patient with the use of interpreter through [employer], patient is aware that she needs to call [facility] tomorrow for an outpatient follow-up appointment. She is to start taking her Keflex tomorrow. She will be discharged home with a Zofran pack. Return for worsening pain, fevers. Unable to tolerate medications. Patient was given strict return to the emergency room guidelines. Return for any new or worsening symptoms. All questions were answered. Patient verbalized understanding and agrees with plan of care. 09/03/19 23:23 - Vital Signs Vital signs: Temp Pulse Resp BP Pulse Ox 98.4 F 84 14 153/70 H 100 09/03/19 21:05 09/03/19 21:05 09/03/19 21:05 09/03/19 21:05 09/03/19 21:05 - Laboratory Result Diagrams: 09/03/19 19:57 09/03/19 19:57 Laboratory results interpreted by me: 09/03/19 09/03/19 09/03/19 19:34 19:57 19:57 RBC 2.86 L Hgb 8.7 L Hct 25.6 L RDW 15.0 H Sodium 130.8 L BUN 26 H Creatinine 1.77 H Est GFR ( Amer) 36 L Est GFR (MDRD) Non-Af 30 L Glucose 145 H Alkaline Phosphatase 353 H Urine Protein 100 H Urine Glucose (UA) 50 H Urine Blood LARGE H Leukocyte Esterase Rfl LARGE H - Diagnostic Test Radiology reviewed: Reports reviewed - Consults Dr. Heredia Time consulted: 23:00 Reason for consultation: 09/03/19 23:22 To discuss labs and ultrasound report Consulted provider: follow-up in office Discharge - Discharge Clinical Impression: Hydronephrosis of left kidney, Ureteral obstruction, left Hydronephrosis Qualifiers: Hydronephrosis type: with other ureteral stricture Qualified Code(s): N13.1 - Hydronephrosis with ureteral stricture, not elsewhere classified UTI (urinary tract infection) Qualifiers: Urinary tract infection type: site unspecified Hematuria presence: without hematuria Qualified Code(s): N39.0 - Urinary tract infection, site not specified Condition: Stable Disposition: HOME, SELF-CARE Instructions: Cephalexin ([facility]), Urinary Tract Infection ([facility]) Additional Instructions: It is imperative that you call [facility] tomorrow for an outpatient follow- up appointment for the inflammation and obstruction of your kidneys as we discussed in length. Start your Keflex tomorrow. Zofran as needed for nausea. Return to the emergency room for any new or worsening symptoms. Referrals: ÁNGELA SCHAFER, PEDRO LUISC [Primary Care Provider] - Follow up as needed KAVITHA HEREDIA MD [NO LOCAL MD] - Follow up tomorrow (Call tomorrow for a follow- up appointment) Print Language: [place]
[2019-09-03 19:53] LABS: APPEARANCE,URINE SLIGHTLY-CLOUDY; BILIRUBIN,URINE NEGATIVE (NEGATIVE); COLOR,URINE YELLOW; GLUCOSE, URINE 50 mg/dL (NEGATIVE); KETONES,URINE NEGATIVE (NEGATIVE); PROTEIN,URINE 100 mg/dL (NEGATIVE); URINE SPECIFIC GRAVITY 1.006; UROBILINOGEN,URINE NEGATIVE mg/dL (<2.0)
[2019-09-03 20:26] LABS: ABSOLUTE EOSINOPHILS # (AUTO) 0.1 10^3/uL (0.0-0.6); ABSOLUTE LYMPHOCYTES (AUTO) 1.2 10^3/uL (0.5-4.7); ABSOLUTE MONOCYTES (AUTO) 0.7 10^3/uL (0.1-1.4); ABSOLUTE NEUT (AUTO) 4.3 10^3/uL (1.7-8.2); BASOPHILS % (AUTO) 0.3 % (0-2); EOSINOPHILS % (AUTO) 1.4 % (0-6); HEMATOCRIT 25.6 % (36.0-47.0); HEMOGLOBIN 8.7 g/dL (12.0-15.5); LYMPHOCYTES % (AUTO) 19.5 % (13-45); MEAN CORPUSCULAR HEMOGLOBIN 30.2 pg (27.0-33.4); MEAN CORPUSCULAR HGB CONC 33.8 g/dL (32.0-36.0); MEAN CORPUSCULAR VOLUME 89 fl (80-97); MONOCYTES % (AUTO) 11.4 % (3-13); PLATELET COUNT 207 10^3/uL (150-450); RED BLOOD COUNT 2.86 10^6/uL (3.72-5.28); SEGMENTED NEUTROPHILS % (AUTO) 67.4 % (42-78); TOTAL CELLS COUNTED % (AUTO) 100 %; WHITE BLOOD COUNT 6.3 10^3/uL (4.0-10.5)
[2019-09-03 20:47] LABS: ALBUMIN 3.6 g/dL (3.5-5.0); ALKALINE PHOSPHATASE 353 U/L (38-126); ANION GAP 8 (5-19); ASPARTATE AMINO TRANSFERASE 26 U/L (14-36); BILIRUBIN,DIRECT 0.1 mg/dL (0.0-0.4); BILIRUBIN,TOTAL 0.5 mg/dL (0.2-1.3); BLOOD UREA NITROGEN 26 mg/dL (7-20); CALCIUM 9.1 mg/dL (8.4-10.2); CARBON DIOXIDE 24 mmol/L (22-30); CHLORIDE 99 mmol/L (98-107); GLUCOSE 145 mg/dL (75-110); POTASSIUM 4.8 mmol/L (3.6-5.0); TOTAL PROTEIN 7.6 g/dL (6.3-8.2)
[2019-09-03] MEDS ORDERED: CEFTRIAXONE 1 GM/D5W RTU 1 GM/50 ML RTUPB IV ONE (21:12)
--- NOTE | 2019-09-03 22:00 | RADIOLOGY REPORT (SQ) ---
EXAM DESCRIPTION: US RETROPERITONEUM COMPLETED DATE/TME: 09/03/2019 21:12 CLINICAL HISTORY: 58 years, Female, FLANK PAIN Compared to CT abdomen pelvis dated 08/31/2019. Findings: The right kidney measures 9.1 x 4.8 x 5.5 cm. Left kidney measures 9.6 x 5.2 x 6.3 cm. There is mild left hydronephrosis. No renal calculi are identified. Left ureteral jet is not visualized. Mild edema around the left kidney. No abdominal ascites. IMPRESSION: Mild left hydronephrosis and left ureteral obstruction is suspected.
[2019-09-03] MEDS ORDERED: ONDANSETRON ODT 4 MG TAB (6 TAB/ER DISP) PO PRN (23:20)
[2019-09-03 23:41] VITALS: BP 159/72
== END 2019-09-03 23:41 | disposition home or self-care (01) ==
LOC: ER 17:38
DX: N13.2 Hydronephrosis with renal and ureteral calculous obstruction (principal); N39.0 Urinary tract infection, site not specified; R10.9 Unspecified abdominal pain; E11.9 Type 2 diabetes mellitus without complications; R10.30 Lower abdominal pain, unspecified; R33.9 Retention of urine, unspecified; R30.0 Dysuria; R50.9 Fever, unspecified; R11.2 Nausea with vomiting, unspecified; Z88.8 Allergy status to other drugs, medicaments and biological substances; F17.200 Nicotine dependence, unspecified, uncomplicated; Z85.72 Personal history of non-Hodgkin lymphomas
CPT/HCPCS: 99284; 96361; 96375; 96365; 36415; 87086; 83605; 85025; 87088; 80053; 81001; 76770; J2405; J7120; J0696